=== PATIENT | male | born 1965 | race Caucasian/White ===

== ENCOUNTER 2022-01-14 19:10 | Emergency (ER) | payer SELFPAY ==
--- NOTE | 2022-01-14 19:12 | XRR_ITS ---
PROCEDURE INFORMATION: Exam: XR Chest Exam date and time: 01/14/2022 10:21 PM Age: 56 years old Clinical indication: Angina; Additional info: Cp TECHNIQUE: Imaging protocol: Radiologic exam of the chest. Views: 1 view. COMPARISON: No relevant prior studies available. FINDINGS: Lungs: Unremarkable. No consolidation. Pleural spaces: Unremarkable. No pleural effusion. No pneumothorax. Heart/Mediastinum: Unremarkable. No cardiomegaly. Bones/joints: Screw in the right scapula. XR/XR chest 1V portable [id number] IMPRESSION: No acute finding.
[2022-01-14 19:22] VITALS: BP 151/93; PULSE 103; RESP 18; TEMP 36.8; O2SAT 99
[2022-01-14 20:57] LABS: Basophils # 0.1 10^3/uL (0.0-0.1); Basophils % 0.9 %; Eosinophils # 0.3 10^3/uL (0.0-0.8); Eosinophils % 4.2 %; Hematocrit 49.2 % (42.0-52.0); Hemoglobin 17.2 g/dL (11.7-16.6); Lymphocytes # 2.7 10^3/uL (0.8-4.8); Lymphocytes % 35.5 %; Mean Corpuscular Volume 88.6 fl (80-94); Mean Platelet Volume 9.7 fL (7.4-10.4); Monocytes # 0.5 10^3/uL (0.2-0.9); Monocytes % 6.8 %; Neutrophils # 3.93 10^3/uL (1.8-7.7); Neutrophils % 52.2 %; Nucleated Red Blood Cells % 0 %; Platelet Count 235 10^3/cmm (130-400); Red Blood Count 5.55 10^6/uL (4.1-5.3); Red Cell Distribution Width 12.9 % (12.1-15.1); White Blood Count 7.5 10^3/uL (4.0-10.0)
--- NOTE | 2022-01-14 21:12 | ECG_ITS ---
[facility] Test Date: 2022-01-14 Pat Name: Niraj Katz Department: Room: Gender: Male Meatman: : 1965 Requested By: Neto Reyes Order Number: [id number] Sydni MD: Clement Gómez M.D. Measurements Intervals [place] Rate: 80 P: ND: QRS: 43 QRSD: 156 T: 37 QT: 418 QTc: 484 Interpretive Statements ATRIAL FIBRILLATION WITH ABERRANT CONDUCTION OR VENTRICULAR PREMATURE COMPLEXES RIGHT BUNDLE BRANCH BLOCK [120+ ms QRS DURATION, UPRIGHT V1, 40+ ms S IN I/aVL/V4/V5/V6] No previous ECG available for comparison Electronically Signed On 01-15-2022 8:49:03 CDT by Clement Gómez M.D. [id number]
[2022-01-14 21:17] LABS: Alanine Aminotransferase 21 U/L (0-41); Albumin Level 4.6 g/dL (3.5-5.2); Alkaline Phosphatase 61 IU/L (40-130); Anion Gap 16.3 (5-19); Aspartate Amino Transferase 33 U/L (0-40); Blood Urea Nitrogen 22 mg/dL (6-20); Calcium 9.2 mg/dL (8.5-10.5); Carbon Dioxide 25 mmol/L (22-29); Chloride 102 mmol/L (98-107); Globulin 2.6 g/dL (1.3-4.6); Glomerular Filtration Rate 69.8 mL/min (90-130); Glucose 96 mg/dL (65-115); Osmolality Calculated 291 mOsm/kg (285-295); Potassium 4.3 mmol/L (3.5-5.1); Sodium 139 mmol/L (136-145); Total Bilirubin 0.3 mg/dL (0.15-1.2); Total Protein 7.2 g/dL (6.6-8.7)
[2022-01-14 21:18] LABS: Troponin(5th) Baseline 8 ng/L (0-15)
[2022-01-14 22:23] VITALS: BP 143/91; PULSE 92; RESP 17; O2SAT 100
--- NOTE | 2022-01-14 22:27 | ED_ITS ---
HPI - Arrhythmia/Palpitations General: Chief Complaint: Arrhythmia/Palpitations Stated Complaint: Dr sent for afib Time Seen by Provider: 01/14/22 21:49 Source: patient Mode of arrival: ambulatory Limitations: no limitations History of Present Illness: 56-year-old male states he has a history of paroxysmal A. fib. He states he was admitted back in 1998 for this but he is typically converts on his own. He states he has had few episodes over the years but he typically converts within minutes. He states that he started to have irregular heart rhythm and went to A. fib last night during dinner and states he is continue to be in A. fib today he spoke to his physician who sent him to the ER. He is in A. fib here but is rate controlled he denies any pain he states he just can feel that his heart rate is irregular. Denies any chest pain or shortness of breath or worsening or improving factors. Associated symptoms: Deny nausea or vomiting Review of Systems Const: Denies: fever(s), chills, body aches or change in appetite Eyes: Denies: blurry vision or eye discomfort ENMT: Denies: throat pain or dental pain Card: Reports: palpitations and irregular heart rhythm Resp: Denies: dyspnea GI: Denies: abdominal pain, nausea, vomiting or diarrhea : Denies: dysuria Musc: Denies: neck pain or back pain Skin/Breast: Denies: rash Neuro: Denies: headache(s) Psych: Denies: depression Mayank/Lymph: Denies: easy bruising All/Imm: Denies: urticaria PFS ED PFSH: Medical History (Updated 01/14/22 @ 22:44 by Neto Reyes MD) History of atrial fibrillation History of hypertension Family History Mother Hypertension Father Hypertension Cancer Prostate CA Heart disease Social History Smoking and tobacco status: never smoked Physical Exam Const: COMMON NORMALS: no acute distress, patient oriented x3 and healthy appearing HENMT: COMMON NORMALS: normocephalic and atraumatic HEAD & SCALP: normocephalic and atraumatic Eye: COMMON NORMALS: Equal, round and reactive pupils present and EOMs intact bilaterally PUPIL: Yes Equal, round and reactive pupils present Neck/C-Spine: COMMON NORMALS: full ROM and supple Chest: COMMONS NORMALS: normal inspection of the chest and normal palpation of entire chest wall Resp: COMMON NORMALS: normal respiratory effort, No retractions, No use of accessory muscles and clear to auscultation bilaterally AUSCULTATION: clear to auscultation bilaterally Cardio: COMMON NORMALS: regular rate and No murmurs present (Cardio) RATE: regular rate RHYTHM: abnormal rhythm irregularly irregular GI: COMMON NORMALS: Normal to inspection, nondistended, normoactive bowel sounds present, Soft to palpation, non-tender and no masses PALPATION: Yes Soft to palpation Extremity: COMMON NORMALS: normal to inspection and full ROM Neuro: COMMON NORMALS: patient oriented x3, moves all extremities and no focal motor deficits Psych: COMMON NORMALS: mental status grossly normal, Normal thought process present and cooperative THOUGHT PROCESS: Normal thought process present Skin: COMMON NORMALS: no rashes or lesions noted and no wounds GENERAL SKIN EXAM: no rashes or lesions noted Course Vital Signs: Vital signs: Vital Signs Temperature 98.2 F 01/14/22 19:22 Pulse Rate 83 01/14/22 23:09 Respiratory Rate 16 01/14/22 23:09 Blood Pressure 134/98 01/14/22 23:09 Pulse Oximetry 99 01/14/22 23:09 MDM - Arrhythmia/Palpitations Medical Decision Making Patient presents here with atrial for visit heart rate is controlled. I did speak to real estate investment analyst Dr. Addison will give patient a dose of Rythmol here. We will give him a dose of Lovenox as well. I informed him if he does convert he does not need to take any meds but if he continues to be in A. fib I will write him a prescription for Toprol and Eliquis that he is to start tomorrow if he does not convert. He is to follow-up with Dr. Gómez in 3 to 5 days return to ER if worsening he understands and agrees to plan. Lab Data : 01/14/22 20:49 01/14/22 20:49 Radiology Impressions Chest X-Ray 01/14/22 19:12 IMPRESSION: No acute finding. Laboratory Results WBC 7.5 10^3/uL (4.0-10.0) 01/14/22 20:49 RBC 5.55 10^6/uL (4.1-5.3) H 01/14/22 20:49 Hgb 17.2 g/dL (11.7-16.6) H 01/14/22 20:49 Hct 49.2 % (42.0-52.0) 01/14/22 20:49 MCV 88.6 fl (80-94) 01/14/22 20:49 MCH 31.0 pg (28.0-34.0) 01/14/22 20:49 MCHC 35.0 g/dL (30.0-36.0) 01/14/22 20:49 RDW 12.9 % (12.1-15.1) 01/14/22 20:49 Plt Count 235 10^3/cmm (130-400) 01/14/22 20:49 MPV 9.7 fL (7.4-10.4) 01/14/22 20:49 Neut % (Auto) 52.2 % 01/14/22 20:49 Lymph % (Auto) 35.5 % 01/14/22 20:49 [place] % (Auto) 6.8 % 01/14/22 20:49 Eos % (Auto) 4.2 % 01/14/22 20:49 Baso % (Auto) 0.9 % 01/14/22 20:49 Neut # (Auto) 3.93 10^3/uL (1.8-7.7) 01/14/22 20:49 Lymph # (Auto) 2.7 10^3/uL (0.8-4.8) 01/14/22 20:49 [place] # (Auto) 0.5 10^3/uL (0.2-0.9) 01/14/22 20:49 Eos # (Auto) 0.3 10^3/uL (0.0-0.8) 01/14/22 20:49 Baso # (Auto) 0.1 10^3/uL (0.0-0.1) 01/14/22 20:49 Nucleated RBC % (auto) 0 % 01/14/22 20:49 Nucleated RBCs # 0.0 /100WBC 01/14/22 20:49 Sodium 139 mmol/L (136-145) 01/14/22 20:49 Potassium 4.3 mmol/L (3.5-5.1) 01/14/22 20:49 Chloride 102 mmol/L (98-107) 01/14/22 20:49 Carbon Dioxide 25 mmol/L (22-29) 01/14/22 20:49 Anion Gap 16.3 (5-19) 01/14/22 20:49 BUN 22 mg/dL (6-20) H 01/14/22 20:49 Creatinine 1.1 mg/dL (0.7-1.2) 01/14/22 20:49 GFR Calculation 69.8 mL/min (90-130) L 01/14/22 20:49 Glucose 96 mg/dL (65-115) 01/14/22 20:49 Calculated Osmolality 291 mOsm/kg (285-295) 01/14/22 20:49 Calcium 9.2 mg/dL (8.5-10.5) 01/14/22 20:49 Total Bilirubin 0.3 mg/dL (0.15-1.2) 01/14/22 20:49 AST 33 U/L (0-40) 01/14/22 20:49 ALT 21 U/L (0-41) 01/14/22 20:49 Alkaline Phosphatase 61 IU/L (40-130) 01/14/22 20:49 Troponin T Baseline 8 ng/L (0-15) 01/14/22 20:49 Total Protein 7.2 g/dL (6.6-8.7) 01/14/22 20:49 Albumin 4.6 g/dL (3.5-5.2) 01/14/22 20:49 Globulin 2.6 g/dL (1.3-4.6) 01/14/22 20:49 EKG Data EKG 1: I personally reviewed and interpreted this EKG as follows: EKG interpretation date: 01/14/22 EKG interpretation time: 22:13 Interpretation: afib hr [address] or t wave abnormalities qrs 156 qtc 454 Other EKG comments: Chest X-Ray 01/14/22 19:12 IMPRESSION: No acute finding. Discharge Plan Discharge Patient Disposition: Home Clinical Impression: Atrial fibrillation Qualifiers: Atrial fibrillation type: paroxysmal Qualified Code(s): I48.0 - Paroxysmal atrial fibrillation Condition: Stable Prescriptions: New Toprol XL 25 mg tablet extended release 24 hr 25 mg PO DAILY Qty: 30 0RF Eliquis 5 mg tablet 10 mg PO BID Qty: 14 0RF Rx Instructions: take 2 tabs bid for first 7 days Eliquis 5 mg tablet 5 mg PO BID Qty: 60 0RF Rx Instructions: take one tab bid starting after loading dose No Action aspirin 325 mg tablet 325 mg PO DAILY 0RF zolpidem 5 mg tablet 5 mg PO .bedtime PRN (Reason: sleep) 0RF losartan 50 mg tablet 50 mg PO DAILY Qty: 90 3RF Discharge Orders: Discharge ED (Routine); Ordered 01/14/22 Ordered By: Neto Reyes Referrals: Clement Gómez MD [Physician] - 1-3 days Kain Wallis DO [Primary Care Provider] - Discharge Diet: Advance as tolerated Discharge Activity: Resume usual activity Patient Instructions: A-fib (Atrial Fibrillation) (ED) Coding Level of Care Code ED [employer] for Alina Fwcharline Exam Comprehensive
[2022-01-14] MEDS: propafenone 150 mg Tablet 450 MG PO (23:01)
[2022-01-14] MEDS: enoxaparin 80 mg/0.8 mL Syringe SUBCUT (23:02)
[2022-01-14 23:09] VITALS: BP 134/98; PULSE 83; RESP 16; O2SAT 99
[2022-01-14 23:34] LABS: Magnesium 2.1 mg/dL (1.7-2.3)
--- NOTE | 2022-01-16 10:08 | DCPLANNER ---
Addendum entered by Joanie Sanchez 02/05/22 13:35: Patient had a follow up appointment scheduled for 02.05.[address] Gómez at [facility] - patient did attend appointment. Original Note: manager cash had message to schedule a follow up appointment for patient with cardiology. manager cash sent patients information will be printed and reviewed. Clinic will call patient with appointment information.
== END 2022-01-14 23:11 | disposition home or self-care (01) ==
PROVIDERS: Emergency Provider Emergency Medicine; PCP Family Medicine
DX: I48.0 Paroxysmal atrial fibrillation (principal); Z79.82 Long term (current) use of aspirin; I10 Essential (primary) hypertension
CPT/HCPCS: 71045; 80053; 83735; 84484; 85025; 93005; 96372; 99284; J1650